=== PATIENT | female | born 1945 | race Caucasian/White ===

== ENCOUNTER 2023-12-23 13:29 | Inpatient (IN) | payer MEDICARE ==
[~2023-12-23] VITALS: Ht 157.5 cm; Wt 56.0 kg
[2023-12-23 14:25] LABS: BASOPHILS % 0.5 % (0.0-2.0); DIFFERENTIAL COMMENT 0; EOSINOPHILS % 0.1 % (0.0-5.0); HEMATOCRIT. 36.1 % (36.0-48.0); HEMOGLOBIN. 11.6 g/dL (12.0-16.0); LYMPHOCYTES % 17.8 % (20.0-50.0); MEAN CORPUSCULAR HEMOGLOBIN 22.5 pg (28.0-32.0); MEAN CORPUSCULAR HGB CONC 32.1 g/dL (31.0-37.0); MEAN CORPUSCULAR VOLUME 70.1 fL (81.0-99.0); MEAN PLATELET VOLUME 8.1 fl (7.4-10.4); MONOCYTES % 8.7 % (2.0-8.0); NEUTROPHILS % 72.9 % (40.0-76.0); PLATELET 434 x1000/uL (130-400); RED BLOOD CELL COUNT 5.15 mill/uL (4.2-5.4); RED CELL DISTRIBUTION WIDTH 14.5 % (11.6-14.6); WHITE BLOOD COUNT 7.6 x1000/uL (4.5-11.0)
[2023-12-23 14:28] LABS: CARBON DIOXIDE 26 mEq/L (21-32); CHLORIDE 99 mEq/L (98-107); POTASSIUM 3.7 mEq/L (3.5-5.1); SODIUM 132 mEq/L (136-145)
[2023-12-23 14:29] LABS: CALCIUM 9.9 mg/dL (8.7-10.4)
[2023-12-23 14:33] LABS: CREATININE 0.9 mg/dL (0.6-1.0); PROTHROMBIN TIME 10.9 sec (9.6-11.0)
[2023-12-23 14:34] LABS: GLUCOSE 199 mg/dL (70-105); LACTIC ACID 3.1 mmol/L (0.4-2.0); TROPONIN I HIGH SENSITIVITY 4 ng/L (3.0-34); UREA NITROGEN BLOOD 18 mg/dL (9-23)
[2023-12-23 14:35] LABS: ALANINE AMINOTRANSFERASE 16 IU/L (10-49); ALBUMIN 4.6 g/dL (3.2-4.8); ASPARTATE AMINOTRANSFERASE 17 IU/L (<34)
[2023-12-23 14:36] LABS: BILIRUBIN DIRECT 0.1 mg/dL (<=3.0); BILIRUBIN TOTAL 0.5 mg/dL (0.1-1.0); PROTEIN TOTAL 7.7 g/dL (6.0-8.3)
[2023-12-23] MEDS: KETOROLAC 30MG/ML VIAL IV ONE (14:40)
[2023-12-23] MEDS: SODIUM CHLORIDE 0.9% 1,000 ML IV ONE (16:30)
[2023-12-23] MEDS: FAMOTIDINE 20MG/2ML VIAL IV NR (16:30)
[2023-12-23] MEDS: KETOROLAC 30MG/ML VIAL IV NR (16:30)
[2023-12-23 17:24] VITALS: O2SAT 100
[2023-12-23] MEDS: MIDAZOLAM HCL 2 MG/2 ML VIAL IV ONE (17:24)
[2023-12-23 17:47] LABS: CLARITY URINE CLEAR (CLEAR); COLOR URINE YELLOW (YELLOW); GLUCOSE URINE NEGATIVE (NEGATIVE); KETONES URINE 1+ (NEGATIVE); LEUKOCYTE ESTERASE URINE NEGATIVE (NEGATIVE); NITRITE URINE NEGATIVE (NEGATIVE); OCCULT BLOOD URINE NEGATIVE (NEGATIVE); PH URINE 8.5 (4.5-8.0); PROTEIN URINE TRACE (NEGATIVE); SPECIFIC GRAVITY URINE 1.042 (1.005-1.030); UROBILINOGEN URINE 0.2 E.U./dL (0.2-1.0)
[2023-12-23] MEDS ORDERED: SODIUM CHLORIDE 0.9% 1,000 ML IV NR (18:00)
[2023-12-23 18:02] LABS: BACTERIA URINE 4+; RBC URINE NONE SEEN /hpf (0-2); SQUAMOUS EPITHELIAL CELL URINE FEW /lpf (RARE/1+)
[2023-12-23] MEDS ORDERED: GUAIFENESIN 200MG/10ML SUGAR FREE UDC PO PRN (19:45)
[2023-12-23] MEDS ORDERED: ONDANSETRON HCL 4MG/2ML INJ IV PRN (19:45)
[2023-12-23] MEDS ORDERED: IPRATROPIUM/ALBUTEROL 0.5-3(2.5)MG/3ML NEB HHN PRN (19:45)
[2023-12-23] MEDS ORDERED: MAGNESIUM/ALUMINUM HYDROXIDE/SIMETHICONE 30ML UDC PO PRN (19:45)
[2023-12-23] MEDS ORDERED: NA PHOS,M-B/NA PHOS,DI-BA ENEMA 118ML PR PRN (19:45)
[2023-12-23] MEDS ORDERED: DOCUSATE SODIUM 100MG CAPSULE PO PRN (19:45)
[2023-12-23] MEDS ORDERED: ACETAMINOPHEN 325MG TABLET PO PRN ×2 (19:45)
[2023-12-23] MEDS ORDERED: DEXTROSE 50% WATER 50ML SYRINGE IV PRN (20:00)
[2023-12-23] MEDS: ENOXAPARIN 40MG/0.4ML SYR SUBCUT SCH (20:00)
[2023-12-23] MEDS: SODIUM CHLORIDE 0.9% 1,000 ML IV SCH (20:00)
[2023-12-23] MEDS: PIPERACILLIN/TAZO 3.375G/50ML 50 ML IV SCH (20:00)
[2023-12-23 20:42] LABS: IRON 80 ug/dL (50-170)
[2023-12-23 20:45] LABS: TOTAL IRON BINDING CAPACITY 246 ug/dl (250-425)
[2023-12-23 20:48] LABS: FERRITIN 217 ng/mL (10-291); FOLIC ACID (FOLATE) SERUM > 20.00 ng/mL (>5.38)
[2023-12-23] MEDS: HALOPERIDOL LACTATE 5MG/ML VIAL IM NR (21:03)
[2023-12-23] MEDS: INSULIN LISPRO 100 UNITS/ML SUBCUT SCH (21:38)
[2023-12-23] MEDS: BLOOD SUGAR DIAGNOSTIC STRIP TEST SCH (21:40)
[2023-12-23 22:06] LABS: LACTIC ACID 3.4 mmol/L (0.4-2.0)
[2023-12-23 22:26] VITALS: BP 150/70; PULSE 69; RESP 20; TEMP 97.8
[2023-12-23 22:32] VITALS: BP 150/70; PULSE 70; RESP 20; TEMP 97.8
[2023-12-24] VITALS: BP 146/66; PULSE 69; RESP 19; TEMP 97.9
[2023-12-24 04:00] VITALS: BP 138/58; PULSE 75; RESP 20; TEMP 98.2
[2023-12-24] MEDS: PIPERACILLIN/TAZO 3.375G/50ML IV SCH (04:00)
[2023-12-24 06:40] LABS: VITAMIN B12 SERUM 1910 pg/mL (211-911)
[2023-12-24 08:00] VITALS: BP 133/60; PULSE 69; RESP 18; TEMP 97.9
[2023-12-24 08:25] LABS: BASOPHILS % 0.6 % (0.0-2.0); EOSINOPHILS % 0.3 % (0.0-5.0); HEMATOCRIT. 32.5 % (36.0-48.0); HEMOGLOBIN. 10.9 g/dL (12.0-16.0); MEAN CORPUSCULAR HEMOGLOBIN 23.1 pg (28.0-32.0); MEAN CORPUSCULAR HGB CONC 33.3 g/dL (31.0-37.0); MEAN CORPUSCULAR VOLUME 69.3 fL (81.0-99.0); MEAN PLATELET VOLUME 8.6 fl (7.4-10.4); NEUTROPHILS % 59.1 % (40.0-76.0); PLATELET 404 x1000/uL (130-400); RED CELL DISTRIBUTION WIDTH 14.6 % (11.6-14.6); WHITE BLOOD COUNT 6.5 x1000/uL (4.5-11.0)
[2023-12-24 08:29] LABS: CHLORIDE 102 mEq/L (98-107); POTASSIUM 3.2 mEq/L (3.5-5.1); SODIUM 138 mEq/L (136-145)
[2023-12-24 08:30] LABS: CALCIUM 9.4 mg/dL (8.7-10.4); CARBON DIOXIDE 26 mEq/L (21-32)
[2023-12-24 08:32] LABS: DIFFERENTIAL COMMENT 1
[2023-12-24 08:35] LABS: CREATININE 0.9 mg/dL (0.6-1.0); GLUCOSE 132 mg/dL (70-105); UREA NITROGEN BLOOD 14 mg/dL (9-23)
[2023-12-24 08:38] LABS: THYROID STIMULATING HORMONE 8.73 uIU/mL (0.55-4.78)
[2023-12-24 08:39] LABS: T4 FREE 1.15 ng/dL (0.89-1.76)
[2023-12-24] MEDS: PANTOPRAZOLE 40MG DR TABLET PO SCH (09:38)
[2023-12-24] MEDS: AMLODIPINE 5MG TABLET PO SCH (09:39)
[2023-12-24 12:00] VITALS: BP 163/74; PULSE 69; RESP 18; TEMP 97.9
[2023-12-24] MEDS ORDERED: POTASSIUM CHLORIDE 40 MEQ in DEXT 5% WATER 230 ML IV ONE (13:45)
[2023-12-24] MEDS ORDERED: KETOROLAC 30MG/ML VIAL IV PRN (14:00)
[2023-12-24] MEDS: POTASSIUM CHLORIDE 20MEQ/PACKET PO NR (15:41)
[2023-12-24 16:00] VITALS: BP 179/88; PULSE 75; RESP 18; TEMP 96.6
[2023-12-24] MEDS: KCL 20MEQ/100ML X 2 FOR TOTAL KCL 40MEQ/200ML IV SCH (16:37)
[2023-12-24] MEDS: CLONIDINE 0.1MG TABLET PO PRN (19:06)
[2023-12-24 20:00] VITALS: BP 174/84; PULSE 72; RESP 18; TEMP 98.2
[2023-12-24] MEDS: INSULIN GLARGINE 100 UNITS/ML SUBCUT SCH (21:54)
[2023-12-25] VITALS: BP 115/63; PULSE 64; RESP 20; TEMP 97.8
[2023-12-25 04:00] VITALS: BP 131/70; PULSE 62; RESP 20; TEMP 97.7
[2023-12-25 04:31] LABS: HEMATOCRIT 32.8 % (36.0-48.0); HEMOGLOBIN 10.9 g/dL (12.0-16.0); MEAN CORPUSCULAR HEMOGLOBIN 22.9 pg (28.0-32.0); MEAN CORPUSCULAR HGB CONC 33.1 g/dL (31.0-37.0); MEAN CORPUSCULAR VOLUME 69.3 fL (81.0-99.0); PLATELET 373 x1000/uL (130-400); RED BLOOD CELL COUNT 4.74 mill/uL (4.2-5.4); RED CELL DISTRIBUTION WIDTH 14.9 % (11.6-14.6); WHITE BLOOD COUNT 6.3 x1000/uL (4.5-11.0)
[2023-12-25 04:43] LABS: CHLORIDE 108 mEq/L (98-107); SODIUM 138 mEq/L (136-145)
[2023-12-25 04:44] LABS: CARBON DIOXIDE 24 mEq/L (21-32)
[2023-12-25 04:45] LABS: CALCIUM 8.6 mg/dL (8.7-10.4)
[2023-12-25 04:49] LABS: CREATININE 0.8 mg/dL (0.6-1.0); GLUCOSE 157 mg/dL (70-105); UREA NITROGEN BLOOD 10 mg/dL (9-23)
[2023-12-25 04:54] LABS: T4 FREE 1.17 ng/dL (0.89-1.76); THYROID STIMULATING HORMONE 5.14 uIU/mL (0.55-4.78)
[2023-12-25 08:00] VITALS: BP 172/77; PULSE 60; RESP 20; TEMP 97.9
[2023-12-25 12:00] VITALS: BP 157/72; PULSE 70; RESP 20; TEMP 98.2
[2023-12-25] MEDS: HALOPERIDOL LACTATE 5MG/ML VIAL IM NR (12:25)
[2023-12-25 16:00] VITALS: BP 117/66; PULSE 61; RESP 20; TEMP 97.5
[2023-12-25] MEDS ORDERED: SODIUM BICARBONATE 8.4% 1 MEQ/ML 50ML SYR IV ONE (18:45)
[2023-12-25 20:00] VITALS: BP 141/74; PULSE 63; RESP 18; TEMP 97.4
[2023-12-25] MEDS: HALOPERIDOL 0.5MG TABLET PO SCH (20:05)
[2023-12-26] VITALS: BP 109/72; PULSE 62; RESP 18; TEMP 100.8
[2023-12-26 04:00] VITALS: BP 167/77; PULSE 62; RESP 17; TEMP 100.8
[2023-12-26 08:00] VITALS: BP 166/76; PULSE 59; RESP 18; TEMP 98.7
[2023-12-26 10:22] LABS: HEMATOCRIT 35.8 % (36.0-48.0); HEMOGLOBIN 11.4 g/dL (12.0-16.0); MEAN CORPUSCULAR HEMOGLOBIN 22.6 pg (28.0-32.0); MEAN CORPUSCULAR HGB CONC 31.9 g/dL (31.0-37.0); MEAN CORPUSCULAR VOLUME 70.8 fL (81.0-99.0); PLATELET 390 x1000/uL (130-400); RED BLOOD CELL COUNT 5.05 mill/uL (4.2-5.4); RED CELL DISTRIBUTION WIDTH 15.1 % (11.6-14.6); WHITE BLOOD COUNT 6.4 x1000/uL (4.5-11.0)
[2023-12-26 10:33] LABS: CHLORIDE 108 mEq/L (98-107); POTASSIUM 3.7 mEq/L (3.5-5.1); SODIUM 139 mEq/L (136-145)
[2023-12-26 10:34] LABS: CARBON DIOXIDE 23 mEq/L (21-32)
[2023-12-26 10:39] LABS: CREATININE 0.8 mg/dL (0.6-1.0); GLUCOSE 166 mg/dL (70-105); UREA NITROGEN BLOOD 12 mg/dL (9-23)
[2023-12-26 12:00] VITALS: BP 184/86; PULSE 79; RESP 20; TEMP 97.9
[2023-12-26 14:40] VITALS: BP 142/68; PULSE 67; RESP 18; TEMP 98.2
== END 2023-12-26 14:50 | DRG 391 ==
LOC: ER 13:29 → SUATTDRO 13:54 → EDBEDREQ 17:57 → 5WST 18:02 → EDBEDREQ 18:05 → EDBEDREQTM 18:05 → 8WST 22:13
PROVIDERS: ADMIT Internal Medicine; ATTEND Internal Medicine
DX: K59.00 Constipation, unspecified (principal); G92.8 Other toxic encephalopathy; E87.1 Hypo-osmolality and hyponatremia; E87.20 Acidosis, unspecified; F03.92 Unspecified dementia, unspecified severity, with psychotic disturbance; I16.9 Hypertensive crisis, unspecified; F05 Delirium due to known physiological condition; E11.9 Type 2 diabetes mellitus without complications; K57.30 Diverticulosis of large intestine without perforation or abscess without bleeding; D25.9 Leiomyoma of uterus, unspecified; D50.9 Iron deficiency anemia, unspecified; D72.820 Lymphocytosis (symptomatic); E78.5 Hyperlipidemia, unspecified; I10 Essential (primary) hypertension; M43.19 Spondylolisthesis, multiple sites in spine; N28.1 Cyst of kidney, acquired; K76.0 Fatty (change of) liver, not elsewhere classified
CPT/HCPCS: 36415; 74177; 80048; 80076; 81003; 82607; 82728; 82746; 82962; 83036; 83540; 83550; 83605; 84439; 84443; 84484; 85025; 85027; 93005; 93970; 99285; A6261; J1630; J1650; J1815; J1885; J2250; J2543; J3480; J3490